=== PATIENT | female | born 1975 | race Caucasian/White ===

== ENCOUNTER 2016-09-22 16:32 | Emergency (ER) | payer MEDICAID ==
[2016-09-22] MEDS ORDERED: ONDANSETRON 4 MG VIAL ONE (23:11)
[2016-09-22] MEDS ORDERED: METOCLOPRAMIDE 10 MG/2 ML VIAL ONE (23:11)
[2016-09-22] MEDS ORDERED: DIPHENHYDRAMINE 50 MG/ML VIAL ONE (23:11)
[2016-09-22] MEDS ORDERED: SODIUM CHLORIDE 0.9% 50 ML IV ONE (23:12)
[2016-09-22] MEDS ORDERED: KETOROLAC 30 MG/ML VIAL ONE (23:12)
[2016-09-22] MEDS ORDERED: SODIUM CHLORIDE 0.9% 1,000 ML ONE (23:12)
== END 2016-09-23 02:37 | disposition home or self-care (01) ==
LOC: ER 16:32
CPT/HCPCS: 76705; 86677; 96361; 96365; 96375